=== PATIENT | female | born 1990 | race Caucasian/White ===

== ENCOUNTER → 2018-05-02 11:06 | Outpatient (CLI) | payer OTHER, SELFPAY ==
[2018-05-02 15:35] LABS: Absolute Lymphocyte Count 2.34 X10^3/ul (0.83-4.51); Basophil# 0.01 X10^3/uL; Basophil% 0.1 % (0-1); Eosinophil# 0.05 X10^3/uL; Eosinophils% 0.7 % (0-5); Hematocrit 43.5 % (37-47); Hemoglobin 14.5 g/dl (12.0-15.0); Lymphocyte # 2.34 X10^3/ul (4.0); Lymphocyte % 34.5 % (19-41); Mean Corp Hgb Conc 33.3 g/gl (32-36); Mean Corpuscular Hgb 28.9 pg (27.0-32.0); Mean Corpuscular Volume 86.7 fL (81-99); Mean Platelet Vol. 10.3 fl (6.2-12.0); Monocyte# 0.35 X10^3/uL; Monocyte% 5.2 % (0-10); Neutrophil # 4.03 X10^3/uL (2.7-7.7); Neutrophil % 59.4 % (47-70); Platelet Count 219 K/mm3 (150-450); RBC Distribution Width CV 13.1 % (11.6-14.6); RBC Distribution Width SD 41.7 fl (35.1-43.9); Red Blood Count 5.02 M/mm3 (4.2-5.4); White Blood Count 6.8 K/mm3 (4.4-11.0)
[2018-05-02 15:40] LABS: POSITIVE COUNT NO; POSITIVE DIFFERENTIAL NO; POSITIVE MORPHOLOGY NO
[2018-05-02 15:53] LABS: ALB/GLOB Ratio 1.1 RATIO (0.9-2.4); AST(SGOT) 21 U/L (15-37); Alanine Aminotransfer ALT/SGPT 30 U/L (13-56); Albumin, Serum 4.5 g/dL (3.2-5.0); Alkaline Phosphatase 71 U/L (45-117); Anion Gap 7 (5-15); BUN 11 mg/dL (7-18); BUN/Creat Ratio 16.1 RATIO (10-20); Chloride 105 mmol/L (98-107); Cholesterol 173 mg/dL (200); Creatinine, Serum 0.68 mg/dL (0.55-1.02); EST Glomerular Filtration Rate 108 mL/min (>60); Est Glom Filt Rate - Afr Amer 131 mL/min (>60); Globulin 4.1 g/dL (2.2-4.2); Glucose 78 mg/dL (74-106); High Density Lipoprotein 44 mg/dL; Potassium 3.9 mmol/L (3.5-5.1); Protein, Total 8.6 g/dL (6.4-8.2); Sodium Level 138 mmol/L (136-145); Thyroid Stim Hormone (TSH) 1.07 uIU/mL (0.358-3.74); Triglycerides 150 mg/dL; Very Low Density Lipoprotein 30 mg/dL (5-40)
--- OUTSIDE RECORDS SUMMARY | 2018-06-18 04:50 | XMS RPT_ITS ---
:1990 Author Organization [facility] Care Team Providers Name Role Phone FELI CUBA Attending Unavailable BRENNAN ESTRADA Attending Unavailable FELI CUBA Referring Unavailable Mine Huertas Attending Unavailable Mine Huertas Primary Care Unavailable Mine Huertas Attending Unavailable Mine Huertas Referring Unavailable Mine Huertas Primary Care Unavailable Memo Richards Attending Unavailable Mine Huertas Referring Unavailable PROBLEMS PROBLEMS DATE TYPE CONDITION / CODE ATTENDING STATUS SOURCE 06/04/2018 Unknown R01.1 - Cardiac Memo Richards Active [place] murmur, Community unspecified / Hospital R01.1(ICD-10) Repository 05/02/2018 Unknown Z00.01 - Mine Huertas Active Andre Encounter for [facility] medical Repository examination with abnormal findings / Z00.01(ICD-10) PROCEDURES PROCEDURES No Procedure Records FoundRESULTS RESULTS ECHOCARDIOGRAM COMPLETE Observed: 05/19/2018 Status: F Source: [place] 6:31 PM [facility] REPOSITORY [facility] Cardiovascular Services [address] [place] [address] Echo Complete 05/19/18 1251 MR#: [id number] Acct: [id number] Name: LUCI WATSON Rep #: [id number] : 1990 27 From: Memo Richards MD Attending Dr: Mine Huertas MD Status: REG CLI Ordering Dr: Mine Huertas MD Date: 05/19/18 Location: [facility] Sex: F C Admitted: Reason For Study: MURMUR Procedure This was a 2D Doppler, Color Flow transthoracic echocardiogram. The exam was of adequate technical quality. Exam performed in department. Left Ventricle Normal LV size. Left ventricular systolic function is normal. The estimated ejection fraction is 55 %. No evidence for diastolic dysfunction. No regional wall motion abnormalities noted. Right Ventricle Normal RV size. Normal systolic function. Atria Normal left atrium. Normal right atrium. No doppler evidence for ASD. Mitral Valve There is no mitral annular calcification. Normal mitral valve. Trivial mitral valve insufficiency. Tricuspid Valve Normal tricuspid valve. Trivial tricuspid valve insufficiency. Aortic Valve Trisinus/trileaflet aortic valve. Normal aortic valve. Pulmonic Valve The pulmonic valve is not well visualized. Great Vessels Normal sized aortic root. Pericardium/Pleural No pericardial effusion. MMode/2D Measurements AND Calculations LVIDd: 4.3 cm IVSd: 0.90 cm Ao root diam: 2.9 cm LVIDs: 3.1 cm LVPWd: 0.91 cm RVDd: 3.4 cm FS: 28.5 % LAV(MOD-bp): 39.4 ml LA A4 area: 14.9 cm2 LA dimension(2D): 3.0 cm LAV(MOD-bp) Indexed: 21.6 ml/m2 LAV(MOD-sp2): 37.2 ml LAV(MOD-sp4): 38.9 ml RA A4 area: 13.2 cm2 Doppler Measurements AND Calculations MV E max parker: 71.3 cm/sec Lat Peak E' Parker: 13.8 cm/sec Med Peak E' Parker: 9.1 cm/sec MV A max parker: 63.7 cm/sec E/E' lat: 5.2 E/E' med: 7.8 MV E/A: 1.1 Ao V2 max: 105.6 cm/sec LV V1 max: 92.4 cm/sec PA V2 max: 76.5 cm/sec Ao max P.5 mmHg LV V1 max P.4 mmHg Interpretation Summary Left ventricular systolic function is normal. The estimated ejection fraction is 55 %. Trivial mitral valve insufficiency. Trivial tricuspid valve insufficiency. No evidence for diastolic dysfunction. Ordering Physician: Mine Huertas Referring Physician: Mine Huertas Performed By: Jennie Mc, CHELY, RVT 05/19/181829 Date Memo Richards MD CC: Mine Huertas MD Date Dictated: 05/19/18 1251 Date Transcribed: 05/19/181829 Potato Chip Frier: Signed CBC W/DIFF, AUTOMATED Collected: 05/02/2018 Status: F Source: [place] 11:31 AM [facility] REPOSITORY TYPE CODE TESTS RESULT OUT OF RANGE REFERENCE UNITS LAB L100.1000 4.4-11.0 K/mm3 Normal WBC 6.8 LAB L100.1200 4.2-5.4 M/mm3 Normal RBC 5.02 LAB L100.1300 12.0-15.0 g/dl Normal HGB 14.5 LAB L100.1400 37-47 % Normal HCT 43.5 LAB L100.1500 81-99 fL Normal MCV 86.7 LAB L100.1600 27.0-32.0 pg Normal MCH 28.9 LAB L100.1700 32-36 g/gl Normal MCHC 33.3 LAB L100.1810 11.6-14.6 % Normal RDW CV 13.1 LAB L100.1820 35.1-43.9 fl Normal RDW SD 41.7 LAB L100.1900 150-450 K/mm3 Normal PLT 219 LAB L100.2000 6.2-12.0 fl Normal MPV 10.3 LAB L100.2100 47-70 % Normal NEUT% 59.4 LAB L100.2200 19-41 % Normal LY% 34.5 LAB L100.2300 0-10 % Normal MONO% 5.2 LAB L100.2400 0-5 % Normal EO% 0.7 LAB L100.2500 0-1 % Normal BASO% 0.1 LAB L100.2550 0.0-0.9 % Normal IM GRAN % 0.100 Result Comment: IG% - Immature Granulocytes (promyelocytes, myelocytes and metamyelocytes) > 1% indicates that a LEFT SHIFT is Present. LAB L100.2620 2.0-7.7 X10 3/uL Normal Absolute Neut 4.0 LAB L100.2720 0.83-4.51 X10 3/ul Normal Absolute Lymph 2.34 Performed By: #### L100.0100 #### [facility] [address] [place], [place], [address] COMPREHENSIVE METABOLIC Collected: 05/02/2018 Status: F Source: [facility] 11:31 AM [facility] REPOSITORY TYPE CODE TESTS RESULT OUT OF RANGE REFERENCE UNITS LAB L501.0100 74-106 mg/dL Normal GLU 78 Result Comment: Please note revised GLUCOSE reference range effective 2017. LAB L501.1000 7-18 mg/dL Normal BUN 11 LAB L501.1100 0.55-1.02 mg/dL Normal CREAT,SERUM 0.68 Result Comment: The validity of the calculated GFR AND GFRAA in patients over 70 years has not been determined. Clinical correlation is essential. LAB L501.1110 >60 mL/min Normal EST GFR 108 Result Comment: Non- GFR Calc LAB L501.1115 >60 mL/min Normal EST GFR - AA 131 Result Comment: GFR Calc LAB L501.1300 10-20 RATIO Normal BUN/CRE 16.1 LAB L501.1500 6.4-8.2 g/dL High T PROT 8.6 LAB L501.1800 3.2-5.0 g/dL Normal ALB 4.5 LAB L501.1950 2.2-4.2 g/dL Normal GLOB 4.1 LAB L501.2000 0.9-2.4 RATIO Normal A/G 1.1 LAB L501.2200 8.5-10.1 mg/dL CA Normal 9.0 LAB L501.4100 15-37 U/L Normal AST 21 LAB L501.4305 45-117 U/L Normal ALK P 71 LAB L501.4405 13-56 U/L Normal ALT 30 LAB L501.4600 0.20-1.00 mg/dL T Normal BILI 0.40 LAB L501.5300 136-145 mmol/L NA Normal 138 LAB L501.5600 3.5-5.1 mmol/L K Normal 3.9 LAB L501.5900 98-107 mmol/L CL Normal 105 LAB L501.6100 21.0-32.0 mmol/L Normal CO2 26.0 LAB L501.6200 5-15 Normal GAP 7 Performed By: #### L500.4050, L500.4100, L501.9520 #### [facility] [address] [place], [place], [id number] LIPID PROFILE Collected: 05/02/2018 Status: F Source: [place] 11:31 AM [facility] REPOSITORY TYPE CODE TESTS RESULT OUT OF RANGE REFERENCE UNITS LAB L501.4900 200 mg/dL Normal CHOL 173 Result Comment: <200 mg/dL Desirable 200-240 mg/dL Borderline >240 mg/dL High Risk LAB L501.5000 mg/dL Normal TRIG 150 Result Comment: The drugs N-Acetylcysteine and Metamizole may falsely depress this assay. Serum Triglycerides Reference Interval Normal <150 mg/dL Borderline high 150 - 199 mg/dL High 200 - 499 mg/dL Very High > or = 500 mg/dL LAB L501.6400 mg/dL Normal HDL 44 Result Comment: The drugs N-Acetylcysteine and Metamizole may falsely depress this assay. Reference Range HDL <40 mg/dL Low HDL Cholesterol HDL >or= 60 mg/dL High HDL Cholesterol LAB L501.6500 0-130 mg/dL Normal LDL 99 LAB L501.6600 5-40 mg/dL Normal VLDL 30 Performed By: #### L500.4050, L500.4100, L501.9520 #### [facility] [address] [facility]. [place], [place], [address] THYROID STIM HORMONE Collected: 05/02/2018 Status: F Source: [place] ([facility]) 11:31 AM [facility] REPOSITORY TYPE CODE TESTS RESULT OUT OF RANGE REFERENCE UNITS LAB L501.9520 0.358-3.74 uIU/mL Normal TSH 1.07 Performed By: #### L500.4050, L500.4100, L501.9520 #### [facility] [address] [place], [address] PROGRESS Observed: 09/17/2017 Status: COMPLETED Source: [place] 2:50 PM [facility] REPOSITORY HNO ID: [id number] Author: Brennan Estrada Service: (none) Author Type: Physician Type: Progress Notes Filed: 09/17/2017 2:52 PM Note Text: Please see ultrasound report for details of this visit. Brennan Estrada M.D. PROGRESS Observed: 09/10/2017 Status: COMPLETED Source: [place] 3:41 PM [facility] REPOSITORY HNO ID: [id number] Author: Feli Cuba Service: (none) Author Type: Physician Type: Progress Notes Filed: 09/10/2017 4:22 PM Note Text: Luci Watson is a 26 year old who presents for her annual gynecologic exam. She reports intermittent pelvic pain for 6 months. Menses: no menses - ablation Contraception: tubal ligation HPV vaccine: No Last Pap: 2016 normal HPV: n/a History of abnormal pap: No Last mammogram: never Obstetric History T0 L3 SAB0 TAB0 Ectopic0 Multiple0 Live Births0 Comment: Three children are adopted. 1 miscarriage. PAST MEDICAL HISTORY Diagnosis Date - Acne - Kidney stones one during PAST SURGICAL HISTORY Procedure Laterality Date - CHOLEYCYSTOGRAM GALL BLADDER - S BALLOON,UTERINE ABLATION - TUBAL LIGATION HX FAMILY HISTORY Problem Relation Age of Onset - no breast cancer [Other] [OTHER] - no colon cancer [Other] [OTHER] - no diabetes [Other] [OTHER] - Ischemic Heart Disease Maternal Grandfather SOCIAL HISTORY Social History Substance Use Topics - Smoking status: Never Smoker - Smokeless tobacco: Never Used - Alcohol use Not on file REVIEW OF SYSTEMS Abdomen: No abdominal pain, nausea, vomiting, diarrhea, or constipation. No bloating, early satiety, indigestion, or increased flatulence. Bladder: No dysuria, gross hematuria, urinary frequency, urinary urgency, or incontinence. Breast: No breast lumps, nipple d/c, overlying skin changes, redness or skin retraction. Allergies and current medication updated:Yes EXAM: There were no vitals taken for this visit. GENERAL: pleasant, female in no apparent distress BREAST: soft, non-tender, symmetric, no dominant mass, normal nipple-areolar complex, no lymphadenopathy and no nipple discharge CHEST: Normal inspiratory effort ABDOMEN: soft, non-tender and no masses PELVIC: external genitalia normal, normal Bartholin's glands, urethra, [place]'s glands, no vulvar lesions, no cervical lesions, good vaginal support, physiologic discharge present, normal appearing perineal body and perianal region BIMANUAL: uterus normal size, shape and consistency, no adnexal masses and non-tender RECTOVAGINAL: deferred. NEURO: alert and oriented x3,exam grossly non-focal EXTREMITIES: normal ASSESSMENT/PLAN: 1) Health maintenance: Pap up to date. Nutrition, exercise and routine health maintenance exams reviewed. 2) Contraception: tubal ligation. 3) Pelvic pain - check US 4) Follow up one year or sooner as needed Feli Cuba MD CNOV Observed: 09/10/2017 Status: COMPLETED Source: [place] 3:40 PM [facility] REPOSITORY Office Visit (WOOB) LUCI WATSON ([id number]) 1990 F Date Time Provider Department 09/10/17 3:40 PM FELI CUBA WOAMALIA During your visit today, we recorded the following information about you: Blood pressure Weight Height 112/70 82 kg 1.61 m Feli Cuba MD 09/10/2017 4:22 PM Signed Luci Watson is a 26 year old who presents for her annual gynecologic exam. She reports intermittent pelvic pain for 6 months. Menses: no menses - ablation Contraception: tubal ligation HPV vaccine: No Last Pap: 2015 normal HPV: n/a History of abnormal pap: No Last mammogram: never Obstetric History T0 L3 SAB0 TAB0 Ectopic0 Multiple0 Live Births0 Comment: Three children are adopted. 1 miscarriage. PAST MEDICAL HISTORY Diagnosis Date - Acne - Kidney stones one during PAST SURGICAL HISTORY Procedure Laterality Date - CHOLEYCYSTOGRAM GALL BLADDER - S BALLOON,UTERINE ABLATION 62462 - TUBAL LIGATION HX FAMILY HISTORY Problem Relation Age of Onset - no breast cancer [Other] [OTHER] - no colon cancer [Other] [OTHER] - no diabetes [Other] [OTHER] - Ischemic Heart Disease Maternal Grandfather SOCIAL HISTORY Social History Substance Use Topics - Smoking status: Never Smoker - Smokeless tobacco: Never Used - Alcohol use Not on file REVIEW OF SYSTEMS Abdomen: No abdominal pain, nausea, vomiting, diarrhea, or constipation. No bloating, early satiety, indigestion, or increased flatulence. Bladder: No dysuria, gross hematuria, urinary frequency, urinary urgency, or incontinence. Breast: No breast lumps, nipple d/c, overlying skin changes, redness or skin retraction. Allergies and current medication updated:Yes EXAM: There were no vitals taken for this visit. GENERAL: pleasant, female in no apparent distress BREAST: soft, non-tender, symmetric, no dominant mass, normal nipple-areolar complex, no lymphadenopathy and no nipple discharge CHEST: Normal inspiratory effort ABDOMEN: soft, non-tender and no masses PELVIC: external genitalia normal, normal Bartholin's glands, urethra, [place]'s glands, no vulvar lesions, no cervical lesions, good vaginal support, physiologic discharge present, normal appearing perineal body and perianal region BIMANUAL: uterus normal size, shape and consistency, no adnexal masses and non-tender RECTOVAGINAL: deferred. NEURO: alert and oriented x3,exam grossly non-focal EXTREMITIES: normal ASSESSMENT/PLAN: 1) Health maintenance: Pap up to date. Nutrition, exercise and routine health maintenance exams reviewed. 2) Contraception: tubal ligation. 3) Pelvic pain - check US 4) Follow up one year or sooner as needed Feli Cuba MD Referring Provider: SELF [200] Allergies As of Date: 09/10/2017 Noted Allergy Reaction PENICILLINS 05/17/2014 16 - Unknown Date Reviewed: 09/10/2017 Reviewed by: Feli Cuba - Fully Assessed Reason for Visit: Yearly Exam [187] Primary Visit Diagnosis:Encounter for gynecological examination without abnormal finding [Z01.419] Other Visit Diagnosis:Pelvic pain [R10.2] Order(s):PELVIC US WHI [[id number]] Order #: [id number]: 1 Prescriptions as of 09/10/2017 Sig: SPIRONOLACTONE 50 MG TABLET Take 50 mg by mouth twice milagro* Medication notes this encounter COMPOUNDED PRESCRIPTION >> Candida Bueno Ma 09/10/2017 3:46 PM >> CANDIDA BUENO MA Sep 10, 2017 3:46 PM Not taking Problem List As Of Date: 09/10/2017 (None) Medications Discontinued During This Encounter *breast pump 1 Pu* 0 06/15/2016 09/10/2017 Class: Print RX Cmt: Breast Pump. Dx: Lactating Mother V24.1 Sig: Breast Pump. 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 Follow-up and Disposition History Recorded Encounter Status:Closed by FELI CUBA MD on 09/10/17 GROUP A STREP BY Collected: 07/10/2017 Status: F Source: [facility] 10:09 PM CLINIC MAIN [facility]AMPUS REPOSITORY TYPE CODE TESTS RESULT OUT OF REFERENCE UNITS RANGE LAB GASSRC Throat Swab GAS Specimen Source LAB PCRGAS Negative for Group A Strep Group A PCR Streptococcus by PCR. Result Comment: This test was developed and its performance characteristics determined by [facility] [place] ([facility] It has not been cleared or approved by the FDA. -[facility] is regulated under CLIA as qualified to perform high-complexity testing. This test is used for clinical purposes. It should not be regarded as inv estigational or for research. Performed By: #### GASPCR #### [facility] [address] [place] [id number] PROGRESS Observed: 07/10/2017 Status: COMPLETED Source: [place] 7:20 AM [facility] REPOSITORY HNO ID: [id number] Author: Cassandra Marvin Service: (none) Author Type: Physician Runstitching Machine Operator Type: Progress Notes Filed: 07/10/2017 8:13 AM Note Text: 07/10/2017 Patient presents with: Ear Pain: right, sore throat x 3 days SUBJECTIVE: This is a 26 year old that is here today for Complaint(s) of right ear pain x 2-3 days. Ears popping. + sore throat. + mild cough. Denies fever/chills, nasal congestion, SOB, wheezing, vomiting, diarrhea. PAST MEDICAL HISTORY Diagnosis Date - Acne - Kidney stones one during ALLERGIES Penicillins MEDICATIONS Current Outpatient Prescriptions: *breast pump Breast Pump. Dx: Lactating Mother V24.1 spironolactone (ALDACTONE) 50 mg tablet Take 50 mg by mouth twice daily. No current facility-administered medications for this visit. 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 OBJECTIVE: BP 110/66 Pulse 76 Temp 36.7 ?C (98 ?F) (Tympanic) Resp 16 Wt 80.3 kg (177 lb) BMI 30.78 kg/m2 APPEARANCE Well appearing, alert, in no acute distress, well-hydrated, well nourished. EYES PERRLA, conjunctiva and sclera normal. EARS External ears normal, canals clear. Left TM normal. Right TM dull, mild erythema, + effusion. NOSE/SINUS Nares normal. Septum midline. Mucosa normal. No drainage or sinus tenderness. THROAT + posterior oropharyngeal erythema, no exudate. Uvula midline NECK Supple, no adenopathy; HEART RRR with normal S1 and S2 LUNG clear to auscultation ASSESSMENT/PLAN: 1. Sore throat - ICD9: 462, ICD10: J02.9 (primary diagnosis) - Rapid Strep negative in the office today and Throat culture pending - Discussed supportive care treatment with fluids, rest and analgesia. - The patient may also use warm salt water gargles, throat lozenges and/or OTC throat spray as needed and nasal saline gtts and suction prn. - The patient should follow up in 3-5 days if symptoms persist or worsen - Call back if drooling, increased temperature, symptoms of dehydration and/or still sick in one week - GROUP A STREPTOCOCCUS BY PCR - RAPID STREP TEST B/O 2. Right acute serous otitis media, recurrence not specified - ICD9: 381.01, ICD10: H65.01 - The patient should also be given OTC cough and cold meds as needed, warm salt water gargles, throat lozenges and/or OTC throat spray as needed and nasal saline gtts and suction prn for the first 5-7 days of treatment. - Supportive care with plenty of fluids, rest, and analgesia prn. - Follow up in 3-5 days if symptoms persist or worsen. - CEFDINIR 300 MG CAPSULE Start abx if worsening pain or fever or not resolving in 3- 5 days. The patient indicates understanding of these issues and agrees with the plan. Reviewed red flags and when to seek care sooner. Cassandra Marvin PA-C ALLERGIES ALLERGIES DATE TYPE / CODE NAME / CODE REACTION SEVERITY SOURCE 09/30/2016 Drug Penicillins/X17961 Rash Unknown Andre Allergy/416 0476(RXNORM) Community 251001([facility] ED CT) Repository 05/17/2014 Drug PENICILLINS UNKNOWN [facility] Class/[address] [address] [place] 1003(SNOMED Repository CT) ENCOUNTERS ENCOUNTERS ADMIT/DISCHARGE ACCOUNT ADMITTING ENCOUNTER LOCATION SOURCE NUMBER CLASS 05/19/2018 [id number] Ambulatory [facility] ing:[facility] Repository 05/19/2018 [id number] Ambulatory [facility] Repository 05/02/2018 [id number] Ambulatory [facility] ing:[facility] Repository 09/16/2017/09/18/19 [id number] Ambulatory [address] Repository 09/10/2017/09/13/19 [id number] Ambulatory [address] Repository 07/10/2017/07/15/19 [id number] Ambulatory [address] Repository PAYERS PAYERS ENCOUNTER GUARANTOR PAYER SUBSCRIBER SOURCE 05/19/2018 LUCI Lowry Primary JOVANNI Andre [id number] Insurance:[employer] [place]ENNINGERDOB: [address] [place] Number: Repository [id number]: [phone] [id number] [phone] () Date:8476-78-04BM [id number] [place] [id number]: 05/19/2018 Secondary NOT GIVENUNK [place] Insurance:SELF PAY [facility] Number: Effective Repository Date:2018-05-15 05/19/2018 LUCI Lowry Primary JOVANNI Andre [id number] Insurance:UNITED TH WENNINGERDOB: [place] [id number] [id number] Number: Repository [id number]: [phone] [id number] [phone] () Date:[id number] [address] [address]ZF: 05/19/2018 Secondary NOT GIVENUNK Mitchell Insurance:SELF PAY [facility] Number: Effective Repository Date:2018-05-19 05/02/2018 Luci Lowry Primary Jovanni Mitchell [id number] Insurance:[employer] HL[employer] WenningerDOB: [address] 5304[place] Number: Repository [id number]: [phone] [id number] [phone] () Date:8783-57-57WK [address] [place] [address]LI: 05/02/2018 Secondary NOT GIVENUNK [place] Insurance:[facility]LF [facility]Y [facility] Effective Repository Date:2018-05-02
== END ==
PROVIDERS: Family Provider Family Medicine; PCP Family Medicine; Visit Provider Family Medicine
DX: Z00.01 Encounter for general adult medical examination with abnormal findings (principal)
CPT/HCPCS: 36415; 80053; 80061; 84443; 85025

== ENCOUNTER → 2018-05-19 12:47 | Outpatient (CLI) | payer OTHER, SELFPAY ==
--- NOTE | 2018-05-19 12:51 | ECHOD_ITS ---
Reason For Study: MURMUR Procedure This was a 2D Doppler, Color Flow transthoracic echocardiogram. The exam was of adequate technical quality. Exam performed in department. Left Ventricle Normal LV size. Left ventricular systolic function is normal. The estimated ejection fraction is 55 %. No evidence for diastolic dysfunction. No regional wall motion abnormalities noted. Right Ventricle Normal RV size. Normal systolic function. Atria Normal left atrium. Normal right atrium. No doppler evidence for ASD. Mitral Valve There is no mitral annular calcification. Normal mitral valve. Trivial mitral valve insufficiency. Tricuspid Valve Normal tricuspid valve. Trivial tricuspid valve insufficiency. Aortic Valve Trisinus/trileaflet aortic valve. Normal aortic valve. Pulmonic Valve The pulmonic valve is not well visualized. Great Vessels Normal sized aortic root. Pericardium/Pleural No pericardial effusion. MMode/2D Measurements & Calculations LVIDd: 4.3 cm IVSd: 0.90 cm Ao root diam: 2.9 cm LVIDs: 3.1 cm LVPWd: 0.91 cm RVDd: 3.4 cm FS: 28.5 % LAV(MOD-bp): 39.4 ml LA A4 area: 14.9 cm2 LA dimension(2D): 3.0 cm LAV(MOD-bp) Indexed: 21.6 ml/m2 LAV(MOD-sp2): 37.2 ml LAV(MOD-sp4): 38.9 ml RA A4 area: 13.2 cm2 Doppler Measurements & Calculations MV E max parker: 71.3 cm/sec Lat Peak E' Parker: 13.8 cm/sec Med Peak E' Parker: 9.1 cm/sec MV A max parker: 63.7 cm/sec E/E' lat: 5.2 E/E' med: 7.8 MV E/A: 1.1 Ao V2 max: 105.6 cm/sec LV V1 max: 92.4 cm/sec PA V2 max: 76.5 cm/sec Ao max P.5 mmHg LV V1 max P.4 mmHg Interpretation Summary Left ventricular systolic function is normal. The estimated ejection fraction is 55 %. Trivial mitral valve insufficiency. Trivial tricuspid valve insufficiency. No evidence for diastolic dysfunction. Ordering Physician: Mine Huertas Referring Physician: Mine Huertas Performed By: Jennie Mc, CHELY, RVT
== END ==
PROVIDERS: Family Provider Family Medicine; PCP Family Medicine; Referring Provider Family Medicine; Visit Provider Family Medicine
DX: R01.1 Cardiac murmur, unspecified (principal)
CPT/HCPCS: 93306

== ENCOUNTER → 2018-12-09 | Outpatient (CLI) | payer OTHER, SELFPAY ==
[2018-08-02 11:17] VITALS: BMI 34.0
[2018-12-09 17:39] LABS: Free T3 2.6 pg/mL (2.18-3.98); T4 Free Direct 0.84 ng/dL (0.76-1.46); Thyroid Stim Hormone (TSH) 0.98 uIU/mL (0.358-3.74)
== END | disposition home or self-care (01) ==
PROVIDERS: Family Provider Family Medicine; PCP Family Medicine; Visit Provider Family Medicine
DX: E24.9 Cushing's syndrome, unspecified (principal); E03.9 Hypothyroidism, unspecified
CPT/HCPCS: 36415; 84439; 84443; 84481

== ENCOUNTER → 2019-03-04 12:41 | Outpatient (CLI) | payer OTHER, SELFPAY ==
[2018-08-02 11:17] VITALS: BMI 34.0
== END ==
PROVIDERS: PCP Family Medicine; Visit Provider Family Medicine
DX: E03.9 Hypothyroidism, unspecified (principal); E24.9 Cushing's syndrome, unspecified

== ENCOUNTER 2019-07-11 08:01 | Emergency (ER) | payer OTHER, MEDICAID, SELFPAY ==
[2018-08-02 11:17] VITALS: BMI 34.0
[2019-07-11 08:01] VITALS: BP 130/77; PULSE 77; RESP 15; TEMP 36.4; BMI 32.5
--- NOTE | 2019-07-11 08:12 | CT_ITS ---
STUDY: CT BRAIN WITHOUT CONTRAST REASON FOR EXAM: Female, 28 years old. Patient fell on left side of head with loss of consciousness. RADIATION DOSAGE (If Supplied By Facility): CTDIvol = ( 44.99 ) mGy, DLP = ( 779.24 ) mGycm TECHNIQUE: Transaxial CT imaging of the brain was performed without administration of intravenous contrast material. Individualized dose optimization techniques were used for this CT. COMPARISON: No relevant priors. FINDINGS: Normal soft tissue structures. Normal calvarium. Normal size ventricles and extra-axial spaces for the patient''s age. Normal white matter tracts of the cerebral hemispheres. Normal basal ganglia and thalami. Normal brainstem. Normal cerebellum. There is no intracranial hemorrhage. There are no findings of an acute ischemic infarction. Normal visualized paranasal sinuses. CT/Brain/Head without Contrast IMPRESSION: Normal unenhanced CT scan of the brain. Electronically Signed: Jer Narayanan MD at 8:53 EST Tel , Service support ,
--- NOTE | 2019-07-11 08:12 | RAD_ITS ---
STUDY: X-RAY - LEFT ELBOW REASON FOR EXAM: Female, 28 years old. Fell this morning, left elbow pain TECHNIQUE: 3 view(s) of the elbow. COMPARISON: None. FINDINGS: Normal visualized humerus, radius and ulna. Normal radiocapitellar and ulnotrochlear articulations. The soft tissue structures are unremarkable. RAD/Elbow min 3 Views IMPRESSION: Normal x-ray examination of the elbow. Electronically Signed: Jer Narayanan MD at 8:48 EST Tel , Service support ,
--- NOTE | 2019-07-11 08:38 | ED.VISSUMM ---
- ER Visit Summary Date of Service: 07/11/19 Chief Complaint: [Fall with head and left elbow injury] History of Present Illness: The patient is a 28 F [presents to the emergency department today after sustaining a fall this morning. Patient states that she was coming down the steps and fell striking her head on the wall and injuring her left elbow. Patient believes she went down about 10 [address]ed steps. She thinks she may have been knocked unconscious for short time as when she first hit her head everything kind of went black. Patient complains of some ringing in the right ear. Complains of nausea with standing and walking. She complains of a headache. She is had no vomiting. She denies any neck pain. She denies chest pain or abdomen pain. She is been ambulatory. Patient has no medical history.] Physical Examination: [HEENT-PERRLA, EOMI. Cranial nerves II through XII grossly intact. TMs clear. Mucous membranes moist. No adenopathy. No external evidence of trauma to her head. Patient has no C-spine tenderness on palpation. No hemotympanum noted. Cardiovascular-regular rate and rhythm without murmur or ectopy Lungs-clear to auscultation, chest wall stable without crepitus or subcu emphysema Abdomen-normoactive bowel sounds, soft, nontender, no rebound or rigidity, no peritoneal signs. Extremities-intact ?4, normal range of motion, normal pulses. Left elbow-patient has some mild soft tissue swelling noted over the lateral posterior aspect. There is no ecchymosis or bruising noted. She has good range of motion flexion extension. She has some mild pain with pronation and supination. Neurovascular intact distally.] Test Results: [CT scan of the brain without contrast look normal on my interpretation however awaiting results from radiology. X-ray of the left elbow looks normal on my interpretation without evidence of fracture or dislocation.] Emergency Department Course and Treatment: [Patient was given ibuprofen 800 mg p.o.] Treatment Plan: [Patient did not want a sling. She did not anything for pain for home as she will use ibuprofen and Tylenol. Patient advised to follow-up with her primary care physician within next 3 to 5 days.] Disposition: [Discharged home in stable condition] Impression: [Mechanical fall Closed head injury Contusion left elbow] This note was generated with Idylisation software. It may contain incorrect words, spelling, and punctuation that were not noted in review of the chart prior to signing ED Disposition - Plan for ED Patient: Referrals: Mine Huertas MD [Primary Care Provider] -
--- NOTE | 2019-07-11 08:44 | ED.DEP ---
ED Disposition - Plan for ED Patient: Instructions: CONCUSSION, No Wake Up, CONTUSION, Elbow Referrals: Mine Huertas MD [Primary Care Provider] - 3-5 Days
[2019-07-11] MEDS: Ibuprofen 400 MG Tablet 800 MG PO (08:48)
== END 2019-07-11 09:03 | disposition short-term general hospital (02) ==
LOC: ED 08:26
PROVIDERS: Emergency Provider Emergency Medicine; PCP Family Medicine
DX: S09.90XA Unspecified injury of head, initial encounter (principal); S50.02XA Contusion of left elbow, initial encounter; H93.11 Tinnitus, right ear; R11.0 Nausea; W10.9XXA Fall (on) (from) unspecified stairs and steps, initial encounter; Y93.9 Activity, unspecified; Y92.9 Unspecified place or not applicable
CPT/HCPCS: 70450; 73080; 99282

== ENCOUNTER → 2020-06-03 17:07 | Outpatient (CLI) | payer MEDICAID, SELFPAY | PROVIDERS: PCP Family Medicine; Referring Provider Family Medicine; Visit Provider Family Medicine | DX: Z20.828 Contact with and (suspected) exposure to other viral communicable diseases (principal) | CPT/HCPCS: 87635; C9803; U0005; U0003 ==

== ENCOUNTER → 2020-07-15 14:29 | Outpatient (CLI) | payer MEDICAID, SELFPAY | PROVIDERS: PCP Family Medicine; Visit Provider Family Medicine | DX: Z20.828 Contact with and (suspected) exposure to other viral communicable diseases (principal) | CPT/HCPCS: 87635; U0003 ==

== ENCOUNTER → 2020-07-19 15:58 | Outpatient (CLI) | payer MEDICAID, SELFPAY | LOC: BFHLAB 15:58 → LAB.FUTURE 16:03 → LAB 07-28 10:27 | PROVIDERS: PCP Family Medicine; Visit Provider Family Medicine | DX: R50.9 Fever, unspecified (principal) ==

== ENCOUNTER → 2021-10-25 | Outpatient (CLI) | payer MEDICAID, SELFPAY ==
[2021-10-25 16:51] LABS: Absolute Lymphocyte Count 2.48 X10^3/uL (0.83-4.51); Absolute Neutrophil Count 3.2 X10^3/uL (2.0-7.7); Basophil# 0.02 X10^3/uL; Basophil% 0.3 % (0-1); Eosinophils% 1.6 % (0-5); Hematocrit 40.2 % (37-47); Hemoglobin 13.6 g/dL (12.0-15.0); Lymphocyte # 2.48 X10^3/ul (0.83-4.51); Lymphocyte % 39.8 % (19-41); Mean Corp Hgb Conc 33.8 g/dL (32-36); Mean Corpuscular Volume 85.7 fL (81-99); Mean Platelet Vol. 10.9 fl (6.2-12.0); Monocyte# 0.47 X10^3/uL; Monocyte% 7.5 % (0-10); NRBC Flagged by Analyzer 0 % (0-5); Neutrophil # 3.16 X10^3/uL (2.7-7.7); Neutrophil % 50.8 % (47-70); Platelet Count 200 K/mm3 (150-450); RBC Distribution Width CV 12.3 % (11.6-14.6); RBC Distribution Width SD 38.6 fl (35.1-43.9); Red Blood Count 4.69 M/mm3 (4.2-5.4); White Blood Count 6.2 K/mm3 (4.4-11.0)
[2021-10-25 17:07] LABS: ALB/GLOB Ratio 1.3 RATIO (0.9-2.4); AST(SGOT) 18 U/L (15-37); Alanine Aminotransfer ALT/SGPT 31 U/L (13-56); Albumin, Serum 4.4 g/dL (3.2-5.0); Alkaline Phosphatase 53 U/L (45-117); Anion Gap 7 (5-15); BUN 11 mg/dL (7-18); Calcium,Total 9.3 mg/dL (8.5-10.1); Chloride 104 mmol/L (98-107); Creatinine, Serum 0.65 mg/dL (0.55-1.02); EST Glomerular Filtration Rate 112 mL/min (>60); Est Glom Filt Rate - Afr Amer 136 mL/min (>60); Globulin 3.3 g/dL (2.2-4.2); Glucose 80 mg/dL (74-106); Protein, Total 7.7 g/dL (6.4-8.2); Sodium Level 138 mmol/L (136-145)
[2021-10-30 19:28] LABS: Vitamin D 1,25-Dihydroxy 55.2 pg/mL (24.8-81.5)
== END | disposition home or self-care (01) ==
LOC: BIMLAB 14:47
PROVIDERS: PCP Internal Medicine; Referring Provider Internal Medicine; Visit Provider Internal Medicine
DX: R53.83 Other fatigue (principal); E66.3 Overweight; Z13.1 Encounter for screening for diabetes mellitus
CPT/HCPCS: 36415; 80053; 82652; 85025

== ENCOUNTER → 2022-12-27 | Outpatient (CLI) | payer OTHER, SELFPAY ==
[2023-01-01 18:08] LABS: HPV APTIMA, High Risk Negative (Negative)
== END | disposition home or self-care (01) ==
LOC: LAB 11:16
PROVIDERS: PCP Internal Medicine; Referring Provider Obstetrics & Gynecology; Visit Provider Obstetrics & Gynecology
DX: Z12.4 Encounter for screening for malignant neoplasm of cervix (principal)
CPT/HCPCS: 87624; 88175; G0145

== ENCOUNTER → 2024-01-17 | Outpatient (CLI) | payer OTHER, SELFPAY ==
[2024-01-17 12:32] LABS: Absolute Lymphocyte Count 2.21 X10^3/uL (0.83-4.51); Absolute Neutrophil Count 2.8 X10^3/uL (2.0-7.7); Basophil# 0.03 X10^3/uL; Basophil% 0.5 % (0-1); Eosinophil# 0.14 X10^3/uL; Eosinophils% 2.5 % (0-5); Hematocrit 39.8 % (37-47); Hemoglobin 13.2 g/dL (12.0-15.0); Lymphocyte # 2.21 X10^3/ul (0.83-4.51); Lymphocyte % 39.6 % (19-41); Mean Corp Hgb Conc 33.2 g/dL (32-36); Mean Corpuscular Hgb 28.4 pg (27.0-32.0); Mean Corpuscular Volume 85.6 fL (81-99); Mean Platelet Vol. 10.4 fl (6.2-12.0); Monocyte% 7.2 % (0-10); NRBC Flagged by Analyzer 0 % (0-5); Neutrophil # 2.79 X10^3/uL (2.7-7.7); Platelet Count 185 K/mm3 (150-450); RBC Distribution Width CV 12.7 % (11.6-14.6); RBC Distribution Width SD 39.2 fl (35.1-43.9); Red Blood Count 4.65 M/mm3 (4.2-5.4); White Blood Count 5.6 K/mm3 (4.4-11.0)
[2024-01-17 13:15] LABS: ALB/GLOB Ratio 1.1 RATIO (0.9-2.4); AST(SGOT) 19 U/L (15-37); Alanine Aminotransfer ALT/SGPT 31 U/L (13-56); Alkaline Phosphatase 48 U/L (45-117); Anion Gap 5 (5-15); BUN 12 mg/dL (7-18); BUN/Creat Ratio 22.7 RATIO (10-20); Calcium,Total 9.1 mg/dL (8.5-10.1); Chloride 108 mmol/L (98-107); Cholesterol 217 mg/dL (200); Creatinine, Serum 0.53 mg/dL (0.55-1.02); EST Glomerular Filtration Rate 140 mL/min (>60); Est Glom Filt Rate - Afr Amer 169 mL/min (>60); Globulin 3.8 g/dL (2.2-4.2); Glucose 86 mg/dL (74-106); High Density Lipoprotein 53 mg/dL; Potassium 3.8 mmol/L (3.5-5.1); Protein, Total 7.8 g/dL (6.4-8.2); Sodium Level 138 mmol/L (136-145); Thyroid Stim Hormone (TSH) 0.965 uIU/mL (0.358-3.740); Triglycerides 99 mg/dL; Very Low Density Lipoprotein 20 mg/dL (5-40)
[2024-01-17 14:05] LABS: Vitamin D,25 Hydroxy 26.3 ng/mL
== END | disposition home or self-care (01) ==
PROVIDERS: PCP Family Medicine; Referring Provider Obstetrics & Gynecology; Visit Provider Obstetrics & Gynecology
DX: R01.1 Cardiac murmur, unspecified (principal); E66.3 Overweight; Z13.1 Encounter for screening for diabetes mellitus; Z13.220 Encounter for screening for lipoid disorders; Z13.21 Encounter for screening for nutritional disorder
CPT/HCPCS: 36415; 80053; 80061; 82306; 84443; 85025

== ENCOUNTER → 2024-06-10 | Outpatient (CLI) | payer OTHER, SELFPAY ==
[2024-06-10 17:02] LABS: Absolute Lymphocyte Count 1.72 X10^3/uL (0.83-4.51); Absolute Neutrophil Count 5.6 X10^3/uL (2.0-7.7); Basophil# 0.03 X10^3/uL; Basophil% 0.4 % (0-1); Eosinophil# 0.05 X10^3/uL; Eosinophils% 0.6 % (0-5); Hematocrit 41.6 % (37-47); Hemoglobin 14.1 g/dL (12.0-15.0); Lymphocyte # 1.72 X10^3/ul (0.83-4.51); Lymphocyte % 22.1 % (19-41); Mean Corp Hgb Conc 33.9 g/dL (32-36); Mean Corpuscular Volume 85.6 fL (81-99); Mean Platelet Vol. 10.4 fl (6.2-12.0); Monocyte% 5.1 % (0-10); NRBC Flagged by Analyzer 0 % (0-5); Neutrophil # 5.57 X10^3/uL (2.7-7.7); Neutrophil % 71.4 % (47-70); Platelet Count 247 K/mm3 (150-450); RBC Distribution Width CV 13.1 % (11.6-14.6); RBC Distribution Width SD 40.7 fl (35.1-43.9); Red Blood Count 4.86 M/mm3 (4.2-5.4); White Blood Count 7.8 K/mm3 (4.4-11.0)
[2024-06-10 17:21] LABS: Vitamin B12 552 pg/mL (211-911); Vitamin D,25 Hydroxy 28.4 ng/mL
== END | disposition home or self-care (01) ==
LOC: BWCLAB 15:16
PROVIDERS: PCP Family Medicine; Referring Provider Nurse Practitioner Family; Visit Provider Nurse Practitioner Family
DX: R01.1 Cardiac murmur, unspecified (principal); E66.811 Obesity, class 1
CPT/HCPCS: 36415; 82306; 82607; 85025

== ENCOUNTER 2025-01-19 19:25 | Emergency (ER) | payer OTHER, SELFPAY ==
[2025-01-19 19:25] VITALS: BP 118/93; PULSE 88; RESP 14; TEMP 36.6; O2SAT 99
--- NOTE | 2025-01-19 19:28 | RAD_ITS ---
PROCEDURE: LEFT FOOT MIN 3 VIEWS; ANKLE MIN 3 VIEWS 01/19/2025 REASON FOR EXAM: ROLLED ANKLE; ROLLED ANKLE- THEODORE PAIN TECHNIQUE: Procedure Code: RADFO; RADLENNOX Modality: DX Procedure: FOOT MIN 3 VIEWS; ANKLE MIN 3 VIEWS Laterality: Left COMPARISON: None. FINDINGS: No acute fracture or dislocation. Alignment is anatomic. Preserved joint spaces. No aggressive osseous lesion. No marked soft tissue swelling or radiopaque foreign body. RAD/Ankle min 3 Views IMPRESSION: No acute fracture or dislocation. Reading Location: [id number]
--- NOTE | 2025-01-19 19:29 | RAD_ITS ---
PROCEDURE: LEFT FOOT MIN 3 VIEWS; ANKLE MIN 3 VIEWS 01/19/2025 REASON FOR EXAM: ROLLED ANKLE; ROLLED ANKLE- THEODORE PAIN TECHNIQUE: Procedure Code: RADFO; RADLENNOX Modality: DX Procedure: FOOT MIN 3 VIEWS; ANKLE MIN 3 VIEWS Laterality: Left COMPARISON: None. FINDINGS: No acute fracture or dislocation. Alignment is anatomic. Preserved joint spaces. No aggressive osseous lesion. No marked soft tissue swelling or radiopaque foreign body. RAD/Foot min 3 Views IMPRESSION: No acute fracture or dislocation. Reading Location: [id number]
[2025-01-19 22:50] VITALS: BMI 32.5
--- NOTE | 2025-01-19 23:23 | EDS_ITS ---
HPI History of Present Illness Chief Complaint: Lower Extremity Injury Informant: patient Narrative Narrative: Patient is a 34-year-old female with no significant past medical history presenting with pain and injury to her left ankle. Patient [place] curb [place], when she landed on a rock which caused her foot to invert. She had immediate pain at her lateral malleolus. She has associated swelling. She states she never had pain like this before. Does have some tingling to her toes diffusely on the left side. Is on any blood thinners. Denies any other injuries. No other complaints or concerns at this time. [facility] Medical History Abnormal EKG Elevated cholesterol Seizures Acne Irritant contact dermatitis due to plant Decreased energy Overweight (BMI 25.0-29.9) History of depression Anxiety Heart murmur History of kidney stones Home Medications ?Medication ?Instructions ?Recorded ?Last Taken ?Type cholecalciferol (vitamin D3) 50 50 mcg PO DAILY Unknown History mcg (2,000 unit) capsule ferrous sulfate 325 mg (65 mg 325 mg PO DAILY 10/25/21 Unknown History iron) tablet (Feosol) multivitamin 1 tab PO DAILY 10/25/21 Unkn own History vitamin B complex 1 tab PO DAILY 10/25/21 Unkn own History zinc gluconate 30 mg tablet 30 mg PO DAILY 10/25/21 Un known History Lactobacillus acidophilus 250 1,000 mmu cells PO QDAY 08/31/24 Unknown History million cell capsule (Probiotic Acidophilus) tirzepatide (weight loss) 5 mg/0.5 5 mg (0.5 mL) subcu t QWEEK 4 weeks 01/01/25 Unknown Rx mL subcutaneous solution #2 mL hydrocodone-acetaminophen 5-325mg 1 tab PO Q8H PRN Lloyd n 3 days #10 01/19/25 Unknown Rx 5mg-325mg TABLETS Allergy/AdvReac Type Severity Reaction Status Date / Time Penicillins Allergy Rash Verified 01/19/25 19:25 Family History Father Alcoholism Bipolar 1 disorder Grandfather Myocardial infarction, Onset Age: 50 Colon cancer Obesity Mother Bipolar 1 disorder Anxiety Obesity Grandmother Thyroid disorder Aunt Thyroid disorder Surgical History S/P breast augmentation Status post abdominoplasty History of prior ablation treatment (~05/2011) History of tubal ligation History of cholecystectomy (~04/2011) Social History household members: significant other and children current occupational status: employed 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 Smoking Status: Never smoker Electronic Cigarette Use: not used alcohol intake: never substance use type: does not use what type of physical activity do you participate in: walking and aerobics frequency: 5-6 times per week do you feel safe at home: Yes ROS ROS ED Constitutional Constitutional ED: Denies chills or fever(s) Musculoskeletal Musculoskeletal: Reports other Details: Left ankle pain and swelling Integumentary Denies Abrasions or rash Neurologic Neurologic: Reports paresthesias LLE (Toes) Hematologic/Lymphatic Hematologic/Lymphatic: Denies easy bleeding or easy bruising EXAM Physical Exam Const Vital Signs: 01/19/25 19:25 01/19/25 23:32 Temperature 98 F 98 F Temperature Source Temporal Pulse Rate 88 97 Respiratory Rate 14 18 Blood Pressure 118/93 H 111/81 H Blood Pressure Mean 101 91 Pulse Ox 99 100 Oxygen Delivery Method Room Air Positive well nourished and well developed General Appearance ED: well developed and NAD HEENT Reports moist mucous membranes Resp normal respiratory effort Cardio regular rate and regular rhythm Cardio Narrative: 2+ DP pulses Extremity Extremity Narrative: Swelling and tenderness to the lateral malleolus on the left. No obvious effusion of the ankle present. No bony tenderness of the foot. No tenderness of the proximal tibia. Compartments are soft in the calf. Neuro oriented x3, moves all extremities and no sensory deficits noted Neuro Narrative: Patient reports paresthesias to her toes but sensation is intact to light touch Sensorium / Orientation: alert Skin no wounds Lesions: no lesions Rashes: no rashes MDM MDM MDM Narrative Medical decision making narrative: Patient evaluated for left ankle pain after mechanical fall. Differential includes ankle sprain, fracture and foot fracture. X-ray of the ankle and foot obtained and reviewed by myself as well as radiology. There is no acute fracture or dislocation. Patient is neurovascularly intact with good distal pulses. Lower suspicion for an acute vascular injury. Is given air splint and crutches. Is given a dose of [place] and a short prescription for them. Is given outpatient referral for podiatry. Discussed care of sprains including RICE therapy. She verbalized agreement or stands plan. Discharged home in stable condition peer Radiography Diagnostic Testing: Clinical Impression(s) from Imaging Studies Ankle X-Ray 01/19/25 19:28 IMPRESSION: No acute fracture or dislocation. Reading Location: [facility] Foot X-Ray 01/19/25 19:29 IMPRESSION: No acute fracture or dislocation. Reading Location: [facility] Discharge Plan Triage Chief Complaint: Lower Extremity Injury ED Provider: Sharon Zamora Dx/Rx/DC Orders Clinical Impression: Left ankle sprain, Ankle pain, left Instructions: ED Ankle Sprain (Adult) Prescriptions: New hydrocodone-acetaminophen 5-325 mg tablet 1 tab PO Q8H PRN (Reason: Pain) 3 Days Qty: 10 0RF No Action multivitamin Tablet 1 tab PO DAILY vitamin B complex Tablet 1 tab PO DAILY zinc gluconate 30 mg tablet 30 mg PO DAILY ferrous sulfate [Feosol] 325 mg (65 mg iron) tablet 325 mg PO DAILY cholecalciferol (vitamin D3) 50 mcg (2,000 unit) capsule 50 mcg PO DAILY Probiotic Acidophilus 250 million cell capsule 1,000 mmu cells PO QDAY tirzepatide (weight loss) 5 mg/0.5 mL solution 5 mg subcut QWEEK 28 Days Qty: 2 0RF Primary Care Provider: Mine Huertas Referrals: Mine Huertas MD [Primary Care Provider] - Cornell Maria DPM [Med Staff - Active Staff] - Activity Restrictions/Additional Instructions: Continue to ice and elevate your ankle. You have a broken bone but I suspect you have a significant sprain given your degree of pain and swelling. Follow-up with podiatry as we discussed. Use crutches as needed. You may alternate ibuprofen and Tylenol as well for pain. Please be aware that there is 1 regular strength (325 mg) Tylenol in each of your pain pills in addition to the hydrocodone. Print Language: Korean Disposition Disposition: Home, Self Care Discharge Date/Time: 01/19/25 23:46
[2025-01-19 23:32] VITALS: BP 111/81; PULSE 97; RESP 18; TEMP 36.6; O2SAT 100
[2025-01-19] MEDS: HYDROcodone Bitartrate/Apap 5/325 Tablet PO (23:39)
== END 2025-01-19 23:46 | disposition home or self-care (01) ==
PROVIDERS: Emergency Provider Emergency Medicine; PCP Family Medicine; Visit Provider Emergency Medicine
DX: S93.402A Sprain of unspecified ligament of left ankle, initial encounter (principal); X50.1XXA Overexertion from prolonged static or awkward postures, initial encounter; Y92.481 Parking lot as the place of occurrence of the external cause
CPT/HCPCS: 73610; 73630; 99284

== ENCOUNTER → 2025-02-11 | Outpatient (CLI) | payer OTHER, SELFPAY ==
--- NOTE | 2025-02-11 15:26 | US_ITS ---
PROCEDURE: PELVIC (NON ) 02/11/2025 REASON FOR EXAM: PELVIC PAIN TECHNIQUE: Procedure Code: USPEL Modality: US Procedure: PELVIC (NON ) FINDINGS: Uterus: 8.8 x 5.5 x 3.4 cm uterus is anteverted, no fibroid noted Endometrium: Hyperechoic at 5 mm, there are some endometrial calcifications which I suspect are due to previous instrumentation Right ovary: 3.3 x 2.1 x 1.4 cm Left ovary: 5.1 x 4.4 x 3.8 cm there is a simple 2.9 x 3.0 x 3.1 cm cyst. No specific follow-up needed Other: No free fluid in the cul de sac, bladder distends normally US/Pelvic (Non ) IMPRESSION: Simple 3.1 cm left adnexal cyst, no specific follow-up needed. Sonographically normal uterus and right ovary Reading Location: [id number]
== END | disposition home or self-care (01) ==
LOC: US 15:24
PROVIDERS: PCP Family Medicine; Referring Provider Obstetrics & Gynecology; Visit Provider Obstetrics & Gynecology
DX: R10.2 Pelvic and perineal pain (principal)
CPT/HCPCS: 76856

== ENCOUNTER → 2025-04-07 | Outpatient (CLI) | payer OTHER, SELFPAY ==
[2025-04-09 20:08] LABS: Chlamydia By Nucleic Acid AMP Negative (Negative); Gonococcus By Nucleic Acid AMP Negative (Negative)
== END | disposition home or self-care (01) ==
LOC: LABSPEC 10:36
PROVIDERS: PCP Family Medicine; Visit Provider Nurse Practitioner Family
DX: R10.20 Pelvic and perineal pain unspecified side (principal); Z11.3 Encounter for screening for infections with a predominantly sexual mode of transmission
CPT/HCPCS: 87070; 87205; 87491; 87591

== ENCOUNTER → 2025-05-17 | Outpatient (CLI) | payer OTHER, SELFPAY | END | disposition home or self-care (01) | LOC: LABSPEC 16:07 | PROVIDERS: PCP Family Medicine; Visit Provider Nurse Practitioner Women's Health | DX: N89.8 Other specified noninflammatory disorders of vagina (principal) | CPT/HCPCS: 87070; 87205 ==